=== PATIENT | male | born 2005 | race Caucasian/White ===

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

== ENCOUNTER 2024-01-25 13:50 | Outpatient (AMB) | payer BC, SELFPAY ==
--- NOTE | 2024-01-25 14:06 | AM.OFFWIN_ITS ---
Intake Vital Signs 01/25/24 14:09 Height 5 ft 10 in Weight 158 lb BMI 22.7 BP 128/84 Blood Pressure Location Lt brachial Position Sitting Pulse 72 Pulse Source Pulse Oximeter Temp 98.6 F Temp Source Oral Pulse Oximetry (%) 99 Oxygen Delivery Method Room Air Intake Visit Reasons: EP Possible Ear infection Intake Note: pt c/o RT ear pain for 2-3 days Patient Tobacco Use Status: Never used Tobacco Allergies amoxicillin Allergy (Unknown, Verified 01/25/24 14:18) Unknown Do you need a note to return to daycare/school/sports/work: No HPI EP Possible Ear infection HPI Details This note is constructed using voice recognition software. While every effort has been made to ensure accuracy, roulette dealer errors may have been included. The patient is a 18 year old male who presents to the clinic today with otalgia on the right ear for the past few days. He had been swimming several days prior. He notes some slight difficulty hearing on that side. He does not insert anything into the ear. [facility] Medical History No pertinent past medical history Surgical History No pertinent past surgical history Social History Household Members: Family Both parents involved: Yes Housing: House Patient Tobacco Use Status: Never used Tobacco Cognitive needs: No Hearing needs: No Vision needs: No Review of Systems Const All systems reviewed & are unremarkable except as noted in HPI and below Physical Exam Vital Signs: Last Vital Signs Temp 98.6 F 01/25/24 14:09 Pulse 72 01/25/24 14:09 BP 128/84 01/25/24 14:09 Pulse Ox 99 01/25/24 14:09 Oxygen Delivery Method Room Air 01/25/24 14:09 BMI result Body Mass Index 22.7 Const General: cooperative, healthy appearing, comfortable and no acute distress Orientation/consciousness: patient oriented x3 Limitations: no limitations HEENT Head: Yes normal to inspection Ears: hearing grossly normal bilaterally, external ears normal (external canal erythematous and inflamed.) and TM's normal bilaterally General nose exam: Normal external nose present, Normal nares present and No nasal discharge present Face and sinus: Yes normal facial exam and Yes sinuses nontender Mouth: Normal oral and palatal mucosa present and moist mucous membranes Throat: Yes tonsils normal and Yes uvula midline Eyes General: appearance normal, both eyes and all related structures Neck Neck: Yes normal visual inspection Resp Effort & Inspection: normal respiratory effort, able to speak in complete sentences, Actively coughing, no respiratory distress, not tachypneic, no tripod positioning and no use of accessory muscles Auscultation: clear to auscultation bilaterally Cardio Jugular venous distension: no JVD Rate: regular rate Rhythm: regular rhythm Heart sounds: S1 normal heart sound present, S2 normal heart sound present, no click, no gallops, no murmurs and no rubs Skin General skin exam: no rashes or lesions noted, elasticity normal and turgor normal Neuro General: patient oriented x3 Extrem General: Yes normal to inspection and Yes no clubbing, cyanosis or edema Assessment & Plan Assessment & Plan (1) Otitis externa of right ear: Code(s): H60.91 - Unspecified otitis externa, right ear Qualifiers: Otitis externa type: swimmer's ear Chronicity: acute Qualified Code(s): H60.331 - Swimmer's ear, right ear Plan: Supportive measures encouraged and reviewed. Eardrops ordered for treatment of infection. Advised patient to follow up with any worsening, failure to resolve, increased pain, or worsening hearing. Plan See above for full details and plan. Medications: New ciprofloxacin-dexamethasone 0.3-0.1 % 4 drps otic (ears) BID 7 days 7.5 mL 0RF Coding Level of Care Code Est Pt Level 3 (13741) Diagnoses Acute swimmer's ear of right side H60.331 Otitis externa type: swimmer's ear Chronicity: acute
[2024-01-25 14:09] VITALS: BP 128/84; PULSE 72; TEMP 37; O2SAT 99; BMI 22.7
== END 2024-01-25 15:16 | disposition home or self-care (01) ==
PROVIDERS: PCP Pediatrics; Visit Provider Registered Nurse
DX: H60.331 Swimmer's ear, right ear (principal)
CPT/HCPCS: 99213